=== PATIENT | male | born 1965 | race African-American/Black ===

== ENCOUNTER 2020-12-02 06:20 | Emergency (ER) | payer MEDICAID ==
[~2020-12-02] VITALS: Ht 185.4 cm; Wt 113.2 kg
[2020-12-02 06:37] VITALS: BP 145/71
[2020-12-02] MEDS ORDERED: predniSONE 20 mg tablet PO ONE (07:15)
== END 2020-12-02 07:55 | disposition home or self-care (01) ==
LOC: ER 06:21
DX: M25.571 Pain in right ankle and joints of right foot (principal); M10.9 Gout, unspecified; F17.200 Nicotine dependence, unspecified, uncomplicated
CPT/HCPCS: 73610; 99284; J7512

== ENCOUNTER 2020-12-05 15:56 | Emergency (ER) | payer MEDICAID ==
[~2020-12-05] VITALS: Ht 185.4 cm; Wt 111.4 kg
[2020-12-05 16:20] VITALS: BP 136/74
[2020-12-05] MEDS ORDERED: IBUP-1984 PO (17:40)
[2020-12-05] MEDS ORDERED: ketorolac tromethamine 15mg/ml inj. IM ONE (17:40)
== END 2020-12-05 18:26 | disposition home or self-care (01) ==
LOC: ER 15:57
DX: M10.9 Gout, unspecified (principal); M79.671 Pain in right foot; Z79.899 Other long term (current) drug therapy
CPT/HCPCS: 96372; 99284; J1885

== ENCOUNTER 2025-07-21 09:38 | Inpatient (IN) | payer MEDICAID ==
[~2025-07-21] VITALS: Ht 185.4 cm; Wt 110.6 kg
--- NOTE | 2025-07-21 09:50 | ELECTROCARDIOGRAPH REPORT ---
[facility] Test Date: 2025-07-21 Test Time: 09:44:36 Pat Name: LUCY RAMIREZ Department: EMERGENCY ROOM Room: Gender: M [place] [employer] Supervisor: KH : 1965 Requested By: NORMA NAVA Order Number: [id number] Reading MD: Measurements Intervals [place] Rate: 108 P: 0 AL: 0 QRS: -58 QRSD: 92 T: 71 QT: 334 QTc: 448 Interpretive Statements Atrial fibrillation Ventricular premature complex Left anterior fascicular block Abnormal R-wave progression, late transition Please click the below link to view image of tracing.
[2025-07-21 10:13] LABS: MEAN PLATELET VOLUME 8.5 FL (7.4-10.4); RED CELL DISTRIBUTION WIDTH 18.5 % (11.5-14.5)
--- NOTE | 2025-07-21 10:27 | RADIOLOGY REPORT ---
DI CHEST,SINGLE VIEW, HISTORY: 59 old Male CP COMPARISON: None. None TECHNICAL DATA: 1 view of the chest was obtained. FINDINGS: Lines and tubes: A left chest port is seen. Cardiomediastinal silhouette: normal Pulmonary vasculature: normal Lung expansion: normal Lung airspace: normal Lung interstitium: normal Pleura: normal Pneumothorax: no Bones: Unremarkable Other: no IMPRESSION: No acute intrathoracic abnormality.
[2025-07-21 10:31] LABS: CREATININE 1.03 MG/DL (0.60-1.10); TOTAL CARBON DIOXIDE 28.0 MMOL/L (24-32); eCRCL 85 ML/MIN; eGFR 89 ML/MIN
[2025-07-21 10:34] LABS: LARGE PLATELETS FEW; LYMPHOCYTES % (MANUAL) 12.0 % (21-51); MONOCYTES % (MANUAL) 24.0 % (2-12); NEUTROPHILS % (MANUAL) 64.0 % (42-75); PLATELET ESTIMATE NORMAL
[2025-07-21 10:36] LABS: PRO BRAIN NATRIURETIC PEPTIDE 350 PG/ML (0-125)
--- NOTE | 2025-07-21 11:16 | Physician Documentation ---
History of Present Illness General Chief Complaint: Abdominal Pain Stated Complaint: ABD PAIN Time Seen by MD: 10:17 Primary Medical Doctor: NO PMD Mode of Arrival: EMS History of Present Illness Initial Comments The patient is a 59-year-old male who had colon cancer diagnosed on 04/17/2024 when he presented with hematochezia. He has metastases to the liver. He has undergone nine sessions of chemotherapy under Dr. Ya in [place]. He has an appointment to see him next Saturday. For the past three or four days he has had a fever, up to 102. When he phoned his physician's office they recommended he go to the emergency department. He is also complaining of abdominal pain. He gets shock-like pains at the site of his liver biopsy but, in addition, he has had some central abdominal pain, epigastric for about two weeks. He has a history of hypertension and PE. He is on Eliquis. He denies nausea, vomiting, burning pain. Medication Reconciliation Allergies: Coded Allergies: No Known Allergies (Unverified , 07/21/25) Past Medical History Past Medical History: Gout Past Surgical History: noncontributory Lives In: Home Review of Systems ROS Ten system review is negative except as noted in the HPI. Physical Exam Physical Exam Vital Signs: Temperature: 99.5, Source: Oral, Heart Rate: 99, Respiratory Rate: 14, BP: 126/74, Pulse Oximetry: 98, Weight: 110.600 Oxygen Flow Rate: 0 Physical Exam Physical Exam Vitals and nursing note reviewed. Constitutional: General: Patient is awake, alert, oriented x 4 in no acute distress and well appearing. Speech is clear and lucid. Appearance: Normal appearance. Patient is not ill-appearing, toxic-appearing or diaphoretic. HENT: Head: Normocephalic and atraumatic. Mouth/Throat: Mouth: Mucous membranes are moist. Pharynx: Oropharynx is clear. Eyes: General: No scleral icterus. Extraocular Movements: Extraocular movements intact. Pupils: Pupils are equal, round, and reactive to light. Neck: Supple, no Kernig or Brudzinski sign. Cardiovascular: Rate and Rhythm: Normal rate and regular rhythm. Heart sounds: No murmur heard. Pulmonary: Effort: No respiratory distress. Breath sounds: No wheezing, rhonchi or rales. Abdominal: General: There is no distension. Palpations: There is no fluid wave, hepatomegaly or mass. Tenderness: There is no abdominal tenderness. There is no guarding. Musculoskeletal: General: No swelling or deformity. Skin: Coloration: Skin is not jaundiced. Findings: No erythema or rash. Neurological: Mental Status: Patient is alert. Progress Results/Orders Results/Orders Orders - NORMA NAVA MD Chest,Single View (07/21/25 09:47) Monitor (07/21/25 09:47) Saline Lock (07/21/25 09:47) Oxygen (07/21/25 09:47) Straight Cath For Urine Sample (07/21/25 09:47) Ct Abdomen Pelvis (07/21/25 11:08) Cult Urine + [place] [facility] (07/21/25 11:57) Page Hospitalist (07/21/25 13:36) Completed Orders - NORMA NAVA MD Cbc/Diff (07/21/25 09:47) BMP (07/21/25 09:47) Lipase (07/21/25 09:47) CMP (07/21/25 09:47) Chest,Single View (07/21/25 09:47) PBNP (07/21/25 09:47) Electrocardiogram (07/21/25 09:47) Hs Troponin I W Calculations (07/21/25 09:47) Man Diff (07/21/25 10:02) C-Reactive Protein (07/21/25 10:02) Ua W/Microscopic, Cult If Ind (07/21/25 11:30) LA (07/21/25 12:48) Ceftriaxone 2gm/D5w 50ml Bag (Rocephin 2 (07/21/25 12:50) MG (07/21/25 10:02) Iohexol 300mg/Ml 100ml Inj. (Omnipaque-3 (07/21/25 13:06) Vital Signs 07/21/25 07/21/25 07/21/25 09:41 10:10 12:12 Temp 99.5 Pulse 99 81 Resp 18 14 20 B/P (MAP) 126/74 138/87 (104) Pulse Ox 98 98 O2 Flow Rate 0 0 Laboratory Tests Test 07/21/25 10:02 07/21/25 11:30 07/21/25 12:52 White Blood Count 7.2 Red Blood Count 4.27 L Hemoglobin 12.4 L Hematocrit 37.2 L Mean Corpuscular Volume 87.2 Mean Corpuscular Hemoglobin 29.0 Mean Corpuscular Hemoglobin Concent 33.2 Red Cell Distribution Width 18.5 H Platelet Count 190 Mean Platelet Volume 8.5 Neutrophils (%) (Auto) 63.2 Lymphocytes (%) (Auto) 13.5 L Monocytes (%) (Auto) 22.1 H Eosinophils (%) (Auto) 0.4 Basophils (%) (Auto) 0.8 Neutrophils # (Auto) 4.5 Lymphocytes # (Auto) 1.0 L Monocytes # (Auto) 1.6 H Eosinophils # (Auto) 0.0 Basophils # (Auto) 0.1 CBC Comment Differential Total Cells Counted 100 Neutrophils % (Manual) 64.0 Lymphocytes % (Manual) 12.0 L Monocytes % (Manual) 24.0 H Platelet Estimate Normal Large Platelets Few Red Blood Cell Morphology Perf Basophilic Stippling Anisocytosis 2+ Sodium Level 136 Potassium Level 4.1 Chloride Level 100 Carbon Dioxide Level 28.0 Anion Gap 8 Blood Urea Nitrogen 15 Creatinine 1.03 Estimated GFR/1.73 m2 89 BUN/Creatinine Ratio 14.6 Glucose Level 118 H Calcium Level 9.1 Magnesium Level 2.2 Total Bilirubin 1.2 H Aspartate Amino Transf (AST/SGOT) 35 Alanine Aminotransferase (ALT/SGPT) 19 Alkaline Phosphatase 113 Troponin I High Sensitivity 15 C-Reactive Protein 18.33 H Pro-B-Type Natriuretic Peptide 350 H Total Protein 8.7 H Albumin 2.5 L Globulin 6.2 H Albumin/Globulin Ratio 0.4 L Lipase 22 Chemistry Comments Urine Specimen Description Urinal Urine Color Yellow Urine Clarity Slightly cloudy Urine pH 6.0 Urine Specific [place] 1.010 Urine Protein Negative Urine Glucose (UA) Negative Urine Ketones Negative Urine Occult Blood Trace-intact Urine Nitrite Negative Urine Bilirubin Negative Urine Urobilinogen 0.2 Urine Leukocyte Esterase Negative Urine RBC 3-10 Urine WBC 5-10 H Urine WBC Clumps Few Urine Squamous Epithelial Cells Moderate Urine Transitional Epithelial Cells Moderate Urine Bacteria Few Urine Mucus Few Urine Culture Indicated Indicated Volume Urine Centrifuged 10 ml Urine Comment Lactic Acid Level 1.3 Microbiology Date/Time Source Procedure Growth Status 07/21/25 11:57 Urine Urinal (Er Only) Urine Culture - Preliminary Culture received. Resulted Medical Decision Making Findings This 59-year-old man with a history of colon cancer with metastases to the liver who has been on nine rounds of chemotherapy presents with several days of fever at home, up to 102, generalized weakness and dysuria. His urinalysis shows pyuria and although his documented vital signs do not reflect sepsis he has tachycardia on the monitor up to 120. I believe he is septic. I am going to get him admitted after starting antibiotics. Departure Disposition: ADMITTED INPATIENT Admitted to Inpatient Unit: to hospitalist Admission Level of Care: Med/Surg Impression: Primary Impression: Acute urinary tract infection Condition: Stable Referrals: NO PRIMARY CARE PROVIDER (PCP) Signature Scribe Signature: . Attestation: . NORMA NAVA MD Jul 21, 2025 11:16
[2025-07-21 11:38] LABS: LEUKOCYTE ESTERASE ,URINE NEGATIVE (Neg); NITRITES, URINE NEGATIVE (Neg); OCCULT BLOOD,URINE TRACE-INTACT (Neg)
[2025-07-21 11:53] LABS: UA COLLECTION TYPE URINAL
[2025-07-21 11:54] LABS: MUCUS STRANDS FEW /LPF (Neg); SQUAMOUS EPITHELIAL CELL,UR MODERATE /LPF (FEW); WBC CLUMPS,URINE FEW /HPF (NEGATIVE)
[2025-07-21] MEDS ORDERED: iohexol 300mg/ml 100ml inj. ONE (13:06)
[2025-07-21] MEDS ORDERED: potassium Cl 20 mEq SR tablet PO PRN ×2 (13:50)
[2025-07-21] MEDS ORDERED: ondansetron 4mg rapidly disintigrating tab PO PRN (13:50)
[2025-07-21] MEDS ORDERED: mag hydrox/Alum hydrox/simeth 30ml oral suspension PO PRN (13:50)
[2025-07-21] MEDS ORDERED: magnesium sulf-water 2g/50mL 50 ML IV PRN (13:50)
[2025-07-21] MEDS ORDERED: potassium Cl 40MEQ/1/2NS 520ml 520 ML IV PRN (13:50)
[2025-07-21] MEDS ORDERED: magnesium sulf-water 4G/100mL 100 ML IV PRN (13:50)
[2025-07-21] MEDS: normal saline 1000ml 1,000 ML IV SCH (14:04)
[2025-07-21] MEDS: pantoprazole 40mg Tablet.DR PO ONE (14:04)
[2025-07-21] MEDS: CefTRIAXone 2gm/D5W 50ml BAG 50 ML IV ONE (14:04)
--- NOTE | 2025-07-21 14:13 | HISTORY AND PHYSICAL ---
History & Physical Providers to CC ~ History of Present Illness Reason for Admit\Complaint: UTI, abdominal pain History of Present Illness Roc Al is a 59-year-old male with a past medical history of hypertension, pulmonary embolism, colon cancer with metastasis to liver currently on chemotherapy, TIA who presented to the ED with chief complaint of fever x 3 days and abdominal pain unrelated to food intake x 2 weeks. Patient has had nine rounds of chemo. Patient denies chest pain, palpitations, shortness of breath, n/v/d, dysuria, melena, hematochezia, hematemesis. Initial diagnostic findings are notable for fever and elevated procal. Patient is to be admitted for further workups and treatment. Allergies: Coded Allergies: No Known Allergies (Unverified , 07/21/25) Home Medications Home Medications Active Past Medical History Past Medical History Colon cancer with metastasis to liver Hypertension Pulmonary embolism TIA Gout Past Surgical History Surgical History Comment Denies Past Social History Social History Comment Alcohol: Denies Tobacco: Denies, never Illicit drug use: Denies Living situation: Lives at home with spouse ROS ROS Other than positives in HPI, all 14 review of systems are negative Exam Vitals: Vital Signs Date Time Temp Pulse Resp B/P (MAP) Pulse Ox O2 Delivery O2 Flow Rate FiO2 07/21/25 12:12 81 20 138/87 (104) 98 0 07/21/25 09:41 99.5 General: A&Ox 3, NAD HEENT: Normocephalic, PERRLA Neck: Supple, trachea midline, no JVD Chest: Clear to auscultation bilaterally Cardiovascular: RRR, S1&S2 Abdomen: Pain with palpation in all 4 quadrants; negative rebound tenderness Extremities: No cyanosis/clubbing/or edema Central Nervous System: CN II-XII intact, no focal deficits Musculoskeletal: No paraspinal muscle tenderness, no muscle spasm Skin: Warm and intact Diagnostic Data Last Recorded Lab Results: 07/21/25 1002 07/21/25 1002 Additional Plan Roc Al is a 59-year-old male with a past medical history of hypertension, pulmonary embolism, colon cancer with metastasis to liver currently on chemotherapy, TIA who presented to the ED with chief complaint of fever x 3 days and abdominal pain unrelated to food intake x 2 weeks. Assessment & Plan UTI Colon cancer, on chemotherapy Liver metastasis Immunocompromised status -CT refused by pt; UA positive UTI, procal 1.22 -start IVF, Rocephin/Flagyl, follow blood/urine cx, US abdomen Pulmonary embolism, 8 months ago Hypertension TIA Gout -pending med rec VTE/VTE prophylaxis: Heparin Code Status: Full Code I spent a total of 35 minutes discussing Advanced Care Planning measures with the patient. Advance care planning: Discussed with patient the importance of advance care planning in case of emergent situation. We discussed various resuscitative measures/ ACP with the patient at the time of admission. Patient voiced understanding and patient has decided on a full code status. Date of Service: Jul 21, 2025 Billing Provider: KERRY GARCIA Common Visit Codes: [id number] INP/OBS CARE (HIGH) Secondary Visit Codes: [id number] CARE PLAN 30 MINUTES KERRY GARCIA Jul 21, 2025 14:13
[2025-07-21] MEDS ORDERED: hydrALAZINE 20mg/ml inj. IV PRN (14:15)
[2025-07-21] MEDS: normal saline 1000ml 1,000 ML IV ONE (14:20)
[2025-07-21] MEDS ORDERED: AMLO2.5T2 PO (16:18)
[2025-07-21] MEDS ORDERED: APIX5TAB3 PO (16:18)
[2025-07-21] MEDS: metroNIDAZOLE-Flagyl 500mg/NS 100 ML IV SCH (16:59)
[2025-07-21 18:34] VITALS: RESP 18; O2SAT 99
[2025-07-21 18:39] VITALS: BP 138/86; PULSE 90; RESP 18; TEMP 98.6; O2SAT 99
--- NOTE | 2025-07-21 18:49 | RADIOLOGY REPORT ---
CLINICAL HISTORY: abdominal pain, fever, sepsis, immunocompromised colon cancer with Mets to the live r. TECHNIQUE: Complete ultrasound exam of the abdomen was performed. COMPARISON: None FINDINGS: The liver is heterogeneous in echogenicity with numerous heterogeneous lesions, the largest measuring 9 cm. The liver measures 15.2 similar length. The common duct is 4 mm. Gallbladder is contracted without shadowing stone or tenderness. The pancreas is not well seen. The right kidney is 9.6 cm and the left kidney is 9.8 cm. No hydronephrosis, increased echogenicity, shadowing stone, or focal lesion. Spleen is within normal limits. The aorta and IVC are not seen. IMPRESSION: Numerous liver lesions measuring up to 9 cm, most compatible with provided history of metastatic colo n cancer to the liver.
[2025-07-21 20:00] VITALS: RESP 16; O2SAT 99
[2025-07-21] MEDS: docusate sod 100mg capsule PO SCH (20:00)
[2025-07-21] MEDS: K and/or MAG REPLACEMENT MC SCH (20:00)
[2025-07-21 22:00] VITALS: BP 143/82; PULSE 61; RESP 18; TEMP 99.4; O2SAT 98
[2025-07-21] MEDS: heparin, porcine 5000 units/ml vial SQ SCH (22:09)
[2025-07-22 04:51] LABS: MEAN PLATELET VOLUME 8.4 FL (7.4-10.4); RED CELL DISTRIBUTION WIDTH 18.1 % (11.5-14.5)
[2025-07-22 05:17] LABS: CREATININE 1.20 MG/DL (0.60-1.10); TOTAL CARBON DIOXIDE 27.0 MMOL/L (24-32); eCRCL 73 ML/MIN; eGFR 74 ML/MIN
[2025-07-22] MEDS: HYDROcodone/acetaminophen 5mg/325mg tablet PO PRN (05:54)
[2025-07-22 06:00] VITALS: BP 132/65; PULSE 91; RESP 18; TEMP 100.5; O2SAT 95
[2025-07-22 06:17] LABS: BANDS% (MANUAL) 1.0 % (0-10); LARGE PLATELETS FEW; LYMPHOCYTES % (MANUAL) 11.0 % (21-51); MONOCYTES % (MANUAL) 25.0 % (2-12); NEUTROPHILS % (MANUAL) 63.0 % (42-75); PLATELET ESTIMATE NORMAL
[2025-07-22] MEDS: pantoprazole 40mg Tablet.DR PO SCH (07:23)
[2025-07-22] MEDS: CefTRIAXone 2gm/D5W 50ml BAG 50 ML IV SCH (07:23)
[2025-07-22] MEDS: normal saline 1000ml 1,000 ML IV ONE (09:16)
[2025-07-22 10:00] VITALS: BP 116/68; PULSE 85; RESP 18; TEMP 98; O2SAT 100
[2025-07-22] MEDS: diazepam inj 5 MG/ML inj. IV ONE (11:46)
[2025-07-22] MEDS: ondansetron/PF 4mg/2ml inj IV PRN (11:46)
[2025-07-22] MEDS ORDERED: iohexol 300mg/ml 100ml inj. ONE (11:59)
--- NOTE | 2025-07-22 13:46 | RADIOLOGY REPORT ---
CLINICAL INFORMATION: Sepsis. Abdominal pain. TECHNIQUE: Axial CT images of the abdomen and pelvis were obtained without IV contrast. Coronal and s agittal reformatted images were obtained, reviewed, and stored. Evaluation of the parenchymal organs is limited without IV contrast. Evaluation of the bowel and mesentery is limited without oral contras t. All CT scans at this medical facility are performed using dose modulation techniques as appropriat e to a performed exam including the following: Automated exposure control was utilized; adjustment of the MA and/or KV according to patient size; and use of iterative reconstruction technique. CTDIvol = 32.09 mGy DLP = 1555.67 mGy-cm COMPARISON: None FINDINGS: Lung bases: Mild atelectasis in the lung bases. Liver: There are multiple liver masses, with the largest in the central aspect of the liver involving portions of the right and left hepatic lobes extending up to 7.9 cm in AP dimension, 7.9 cm in trans verse dimension, and up to 12 cm in craniocaudal dimension. Malignancy not excluded. There appears to be some capsular retraction associated with the mass at its anterior aspect. There are additional sm aller solid-appearing masses throughout the liver. There also multiple cysts in the liver. Nodular c ontour of the liver with relative enlargement of the left hepatic lobe, may be seen with cirrhosis in the appropriate clinical setting. Biliary: No calcified gallstones visualized. There is fluid in the gallbladder fossa as well as marion cent perihepatic fluid. Spleen: Unremarkable. Pancreas: Grossly unremarkable in its noncontrast enhanced appearance. Adrenal glands: Unremarkable. No mass. Kidneys: No hydronephrosis. No renal or ureteral calculi. Aorta/Vascular: Moderate atherosclerotic calcification. No abdominal aortic aneurysm. Retroperitoneum: Prominent para-aortic and interaortocaval lymph nodes measuring up to 1.7 x 0.9 cm. Bowel/mesentery: Nonspecific nondilated fluid-filled small bowel loops. No small bowel obstruction. A ppendix is visualized and appears grossly unremarkable. There is somewhat irregular wall thickening s een in the cecum near the ileocecal junction. Malignancy not excluded. Pelvic organs: Grossly unremarkable. Bladder: Moderately distended bladder. Abdominal wall: No mass or hernia. Bones: No acute fracture or suspicious intraosseous lesion. IMPRESSION: 1. Multiple solid-appearing liver lesions are seen, suspicious for malignancy, including metastatic d isease, although other etiologies, including multiple hemangiomas could also be included in the diffe rential. There are also multiple cysts in the liver. Subtle nodular contour of the liver with relati ve enlargement of the left hepatic lobe, may be seen with cirrhosis in the appropriate clinical setti ng. MRI liver mass protocol recommended. 2. There is a small amount of free fluid adjacent to the liver, including at the gallbladder fossa. N o calcified gallstones are seen. 3. Irregular wall thickening of the cecum near the ileocecal junction. Can not exclude malignancy. 4. Prominent para-aortic and interaortocaval lymph nodes are indeterminate based on size and morpholo gy. Senait metastatic disease not excluded. 5. Additional findings as described above.
--- NOTE | 2025-07-22 16:01 | PROGRESS NOTE ---
Daily Progress Note Providers to CC ~ Antibiotic Timeout Antibiotic Ordered?: Yes Subjective No acute events overnight. Patient examined at bedside. No new complaints, not in acute distress. Patient denies chest pain, sob, palpitations, n/v/d. CT abdomen/pelvis consistent with colon cancer with metastasis consistent with history. No hydronephrosis. Preliminary blood/urine culture negative. Objective Vital Signs Date Time Temp Pulse Resp B/P (MAP) Pulse Ox O2 Delivery O2 Flow Rate FiO2 07/22/25 08:00 Room Air 0.0 07/22/25 06:00 100.5 91 18 132/65 (87) 95 Result Diagram: 07/22/2542207/22/25422 Physical Exam General: A&Ox 3, NAD HEENT: Normocephalic, PERRLA Neck: Supple, trachea midline, no JVD Chest: Clear to auscultation bilaterally Cardiovascular: RRR, S1&S2 Abdomen: Pain with palpation in all 4 quadrants, more tenderness in medial upper abdomen; negative rebound tenderness Extremities: No cyanosis/clubbing/or edema Central Nervous System: CN II-XII intact, no focal deficits Musculoskeletal: No paraspinal muscle tenderness, no muscle spasm Skin: Warm and intact Problem\Assessment\Plan Roc Al is a 59-year-old male with a past medical history of hypertension, pulmonary embolism, colon cancer with metastasis to liver currently on chemotherapy, TIA who presented to the ED with chief complaint of fever x 3 days and abdominal pain unrelated to food intake x 2 weeks. Assessment & Plan UTI Colon cancer, on chemotherapy Liver metastasis Immunocompromised status -CT refused by pt; UA positive UTI, procal 1.22 -start IVF, Rocephin/Flagyl, follow blood/urine cx, US abdomen -07/22: CT abdomen/pelvis consistent with colon cancer with metastasis consistent with history. No hydronephrosis. Preliminary urine cx negative. Pulmonary embolism, 8 months ago Hypertension TIA Gout -pending med rec VTE/VTE prophylaxis: Heparin Code Status: Full Code Date of Service: Jul 22, 2025 Billing Provider: KERRY GARCIA Common Visit Codes: [id number] INP/OBS CARE(HIGH) KERRY GARCIA Jul 22, 2025 16:01
[2025-07-22] MEDS: LidoCAINE 2% Topical Jelly 11mL syringe (UROJET) TOP ONE (16:43)
[2025-07-22 18:00] VITALS: BP 145/76; PULSE 89; RESP 18; TEMP 98.8; O2SAT 94
[2025-07-22 20:00] VITALS: RESP 15; O2SAT 96
[2025-07-22 22:00] VITALS: BP 145/76; PULSE 89; RESP 18; TEMP 98.8; O2SAT 94
[2025-07-23 04:46] LABS: MEAN PLATELET VOLUME 8.2 FL (7.4-10.4); RED CELL DISTRIBUTION WIDTH 18.1 % (11.5-14.5)
[2025-07-23 04:57] LABS: CREATININE 1.31 MG/DL (0.60-1.10); TOTAL CARBON DIOXIDE 25.4 MMOL/L (24-32); eCRCL 67 ML/MIN; eGFR 67 ML/MIN
[2025-07-23 06:36] VITALS: BP 132/64; PULSE 95; RESP 20; TEMP 97.3; O2SAT 96
[2025-07-23 07:30] LABS: LYMPHOCYTES % (MANUAL) 22.0 % (21-51); MONOCYTES % (MANUAL) 24.0 % (2-12); NEUTROPHILS % (MANUAL) 54.0 % (42-75)
[2025-07-23 07:31] LABS: PLATELET ESTIMATE NORMAL
[2025-07-23 08:30] VITALS: RESP 17; O2SAT 95
--- NOTE | 2025-07-23 13:00 | PROGRESS NOTE ---
Daily Progress Note Providers to CC ~ Antibiotic Timeout Antibiotic Ordered?: Yes Subjective No acute events overnight. Patient examined at bedside. No new complaints, not in acute distress. Patient denies chest pain, sob, palpitations, n/v/d. Patient reports resolving abdominal pain. CT abdomen/pelvis consistent with colon cancer with metastasis consistent with history. No hydronephrosis. Preliminary blood/urine culture negative. Objective Vital Signs Date Time Temp Pulse Resp B/P (MAP) Pulse Ox O2 Delivery O2 Flow Rate FiO2 07/23/25 11:24 12 07/23/25 08:30 95 Room Air 0.0 07/23/25 06:36 97.3 95 132/64 (86) Result Diagram: 07/23/2540607/23/25406 Physical Exam General: A&Ox 3, NAD HEENT: Normocephalic, PERRLA Neck: Supple, trachea midline, no JVD Chest: Clear to auscultation bilaterally Cardiovascular: RRR, S1&S2 Abdomen: Pain with palpation in all 4 quadrants, more tenderness in medial upper abdomen; negative rebound tenderness Extremities: No cyanosis/clubbing/or edema Central Nervous System: CN II-XII intact, no focal deficits Musculoskeletal: No paraspinal muscle tenderness, no muscle spasm Skin: Warm and intact Problem\Assessment\Plan Roc Al is a 59-year-old male with a past medical history of hypertension, pulmonary embolism, colon cancer with metastasis to liver currently on chemotherapy, TIA who presented to the ED with chief complaint of fever x 3 days and abdominal pain unrelated to food intake x 2 weeks. Assessment & Plan UTI Colon cancer, on chemotherapy Liver metastasis Immunocompromised status -CT refused by pt; UA positive UTI, procal 1.22 -start IVF, Rocephin/Flagyl, follow blood/urine cx, US abdomen -07/22: CT abdomen/pelvis consistent with colon cancer with metastasis consistent with history. No hydronephrosis. Preliminary urine cx negative. -07/23: improving abdominal pain, preliminary blood cx negative; started vancomycin as a add-on therapy Pulmonary embolism, 8 months ago Hypertension TIA Gout -pending med rec VTE/VTE prophylaxis: Heparin Code Status: Full Code Date of Service: Jul 23, 2025 Billing Provider: KERRY GARCIA Common Visit Codes: [id number] INP/OBS CARE(HIGH) KERRY GARCIA Jul 23, 2025 13:00
[2025-07-23] MEDS: VANCOMYCIN 1.75GM/WATER FOR INJ (PEG) 350 ML IVPB IV ONE (15:28)
[2025-07-23 18:00] VITALS: BP 152/84; PULSE 94; RESP 16; TEMP 98.1; O2SAT 99
[2025-07-23 22:00] VITALS: BP 135/68; PULSE 97; RESP 20; TEMP 99.8; O2SAT 95
[2025-07-24] VITALS (7 sets, daily range): BP systolic 138–155; BP diastolic 78–91; PULSE 78–118; RESP 16–40; TEMP 98.2–98.9; O2SAT 93–97
[2025-07-24] MEDS: vancomycin/NS 1 GM ADD-VANTAGE 250 ML IV SCH (02:21)
[2025-07-24] MEDS: HYDROcodone/acetaminophen 10/325mg tab PO PRN (05:39)
[2025-07-24 06:38] LABS: MEAN PLATELET VOLUME 8.4 FL (7.4-10.4); RED CELL DISTRIBUTION WIDTH 18.1 % (11.5-14.5)
--- NOTE | 2025-07-24 06:44 | ELECTROCARDIOGRAPH REPORT ---
[facility] Test Date: 2025-07-24 Test Time: 05:06:26 Pat Name: LUCY RAMIREZ Department: Room: [place] [address] [address] Gender: M Nursing Home Physician: : [id number] Requested By: KERRY GARCIA Order Number: [id number] Reading MD: Dr. DAVONTE Julien Measurements Intervals [place] Rate: 88 P: 0 OK: 0 QRS: -51 QRSD: 76 T: 20 QT: 342 QTc: 413 Interpretive Statements Atrial flutter Left anterior fascicular block Inferior infarct , age undetermined Electronically Signed On 07-24-2025 16:26:[address] DAVONTE Julien Please click the below link to view image of tracing.
[2025-07-24 06:50] LABS: CREATININE 1.18 MG/DL (0.60-1.10); TOTAL CARBON DIOXIDE 29.0 MMOL/L (24-32); eCRCL 74 ML/MIN; eGFR 76 ML/MIN
[2025-07-24] MEDS: normal saline 1000ml 1,000 ML IV ONE ×2 (09:35→10:45)
[2025-07-24] MEDS: PERFLUTREN PROTEIN-A MICROSPHR (Optison) 0.22 MG/ML 3ML VIAL IV ONE (12:55)
--- NOTE | 2025-07-24 13:22 | PROGRESS NOTE ---
Daily Progress Note Providers to CC ~ Antibiotic Timeout Antibiotic Ordered?: Yes Subjective Patient examined at bedside. No new complaints, not in acute distress. EKG overnight shows afib at 108 rate spontaneously controlled. Started bbx and Eliquis. Patient denies chest pain, sob, palpitations, n/v/d. Patient reports resolving abdominal pain. CT abdomen/pelvis consistent with colon cancer with metastasis consistent with history. No hydronephrosis. Preliminary blood/urine culture negative. Low-grade fever, on vancomycin, Rocephin, Flagyl. Objective Vital Signs Date Time Temp Pulse Resp B/P (MAP) Pulse Ox O2 Delivery O2 Flow Rate FiO2 07/24/25 10:30 98.9 83 24 143/82 (102) 97 Room Air 07/24/25 08:00 0.0 Result Diagram: 07/24/25 0547 07/24/25 05 Physical Exam General: A&Ox 3, NAD HEENT: Normocephalic, PERRLA Neck: Supple, trachea midline, no JVD Chest: Clear to auscultation bilaterally Cardiovascular: RRR Abdomen: Pain with palpation in all 4 quadrants, more tenderness in medial upper abdomen; negative rebound tenderness Extremities: No cyanosis/clubbing/or edema Central Nervous System: CN II-XII intact, no focal deficits Musculoskeletal: No paraspinal muscle tenderness, no muscle spasm Skin: Warm and intact Problem\Assessment\Plan Roc Al is a 59-year-old male with a past medical history of hypertension, pulmonary embolism, colon cancer with metastasis to liver currently on chemotherapy, TIA who presented to the ED with chief complaint of fever x 3 days and abdominal pain unrelated to food intake x 2 weeks. Assessment & Plan UTI Colon cancer, on chemotherapy Liver metastasis Immunocompromised status Prerenal ROSS 2/2 dehydration/vasomotor nephropathy- not POA Atrial fibrillation w/ RVR- not POA -CT refused by pt; UA positive UTI, procal . -start IVF, Rocephin/Flagyl, follow blood/urine cx, US abdomen -07/22: CT abdomen/pelvis consistent with colon cancer with metastasis consistent with history. No hydronephrosis. Preliminary urine cx negative. -07/23: improving abdominal pain, preliminary blood cx negative; started vancomycin as an add-on therapy -07/24: Low-grade fever, continue abx; EKG overnight shows afib at 108 rate spontaneously controlled, serum lytes wnl, no hypoxia/hypotension but low-grade fever; start bbx, Eliquis, follow TTE, TSH/T4 Pulmonary embolism, 8 months ago Hypertension TIA Gout VTE/VTE prophylaxis: Heparin Code Status: Full Code Date of Service: Jul 24, 2025 Billing Provider: KERRY GARCIA Common Visit Codes: [id number] INP/OBS CARE(HIGH) KERRY GARCIA Jul 24, 2025 13:22
[2025-07-24] MEDS: carvedilol 6.25mg tablet PO ONE (15:06)
[2025-07-24] MEDS: carvedilol 6.25mg tablet PO SCH (20:00)
[2025-07-24] MEDS ORDERED: metoprolol tartrate 12.5mg (1/2 tablet) PO SCH (20:00)
[2025-07-25] VITALS (9 sets, daily range): BP systolic 137–162; BP diastolic 61–82; PULSE 66–90; RESP 16–26; TEMP 98.3–100.9; O2SAT 92–96
[2025-07-25] MEDS: VANCOMYCIN LEVEL IV ONE (01:30)
[2025-07-25 01:42] LABS: MEAN PLATELET VOLUME 7.9 FL (7.4-10.4); RED CELL DISTRIBUTION WIDTH 18.0 % (11.5-14.5)
[2025-07-25 01:46] LABS: CREATININE 1.08 MG/DL (0.60-1.10); TOTAL CARBON DIOXIDE 25.3 MMOL/L (24-32); eCRCL 81 ML/MIN; eGFR 84 ML/MIN
[2025-07-25] MEDS: magnesium hydroxide 30ml (MOM) UD suspension PO PRN (02:02)
--- NOTE | 2025-07-25 11:23 | PROGRESS NOTE ---
Daily Progress Note Providers to CC ~ Antibiotic Timeout Antibiotic Ordered?: Yes Subjective Patient examined at bedside. No new complaints, not in acute distress. EKG overnight shows afib at 108 rate spontaneously controlled. PAF, repeat EKG sinus with controlled rate. Patient denies chest pain, sob, palpitations, n/v/d. Patient reports resolving abdominal pain. CT abdomen/pelvis consistent with colon cancer with metastasis consistent with history. No hydronephrosis. Preliminary blood/urine culture negative. An episode of low-grade fever at 99.5F which resolved, continued on vancomycin, Rocephin, Flagyl. Objective Vital Signs Date Time Temp Pulse Resp B/P (MAP) Pulse Ox O2 Delivery O2 Flow Rate FiO2 07/25/25 07:16 98.3 71 16 140/62 (88) 93 07/25/25 06:31 Room Air 07/25/25 02:00 2.0 Result Diagram: 07/25/2511607/25/25 011 Physical Exam General: A&Ox 3, NAD HEENT: Normocephalic, PERRLA Neck: Supple, trachea midline, no JVD Chest: Clear to auscultation bilaterally Cardiovascular: RRR Abdomen: Pain with palpation in all 4 quadrants, more tenderness in medial upper abdomen; negative rebound tenderness Extremities: No cyanosis/clubbing/or edema Central Nervous System: CN II-XII intact, no focal deficits Musculoskeletal: No paraspinal muscle tenderness, no muscle spasm Skin: Warm and intact Problem\Assessment\Plan Roc Al is a 59-year-old male with a past medical history of hypertension, pulmonary embolism, colon cancer with metastasis to liver currently on chemotherapy, TIA who presented to the ED with chief complaint of fever x 3 days and abdominal pain unrelated to food intake x 2 weeks. Assessment & Plan UTI Colon cancer, on chemotherapy Liver metastasis Immunocompromised status Prerenal ROSS 2/2 dehydration/vasomotor nephropathy- not POA Atrial fibrillation w/ RVR- not POA -CT refused by pt; UA positive UTI, procal . -start IVF, Rocephin/Flagyl, follow blood/urine cx, US abdomen -07/22: CT abdomen/pelvis consistent with colon cancer with metastasis consistent with history. No hydronephrosis. Preliminary urine cx negative. -07/23: improving abdominal pain, preliminary blood cx negative; started vancomycin as an add-on therapy -07/24: Low-grade fever, continue abx; EKG overnight shows afib at 108 rate spontaneously controlled, serum lytes wnl, no hypoxia/hypotension but low-grade fever; start bbx, Eliquis, follow TTE, TSH/T4 -07/25: PAF, repeat EKG sinus with controlled rate Pulmonary embolism, 8 months ago Hypertension TIA Gout VTE/VTE prophylaxis: Heparin Code Status: Full Code Date of Service: Jul 25, 2025 Billing Provider: KERRY GARCIA Common Visit Codes: [id number] INP/OBS CARE(HIGH) KERRY GARCIA Jul 25, 2025 11:23
[2025-07-25] MEDS: VANCOmycin 1250MG/NS 250ml Bag 250 ML IV SCH (15:26)
--- NOTE | 2025-07-25 17:46 | CARDIOLOGY REPORT ---
APPROVED REPORT EXAM: Comprehensive 2D, Doppler, and color-flow Echocardiogram. Patient Location: 345 [address] Blood Pressure: 150/79 mmHg Heart Rate: 74 bpm Rhythm: Sinus Rhythm Indications Arrhythmia Hx of Atrial Fibrillation Atrial Flutter Hypertension Hx of Pulmonary Embolism Colon Cancer TIA Mathematics Lecturer: None Previous echo: None 2D Dimensions RVDd 3.5 cm LA Diam4.7 cm RA Minor4.4 cmLVOT Diameter 2.10 (1.8-2.4cm) IVC 21.99 mmCO 6.1 L/min M-Mode Dimensions IVSd 1.08 (0.7-1.1cm) LVDd 5.35 (4.0-5.6cm) Aortic Root 2.79 (2.2-3.7cm) PWd 1.10 (0.7-1.1cm) Aortic Cusp Exc 1.86 (1.5-2.0cm) IVSs 1.33 cm LVDs 3.70 (2.0-3.8cm) FS (%) 32 % PWs 1.39 cm ESV(Teich) 55.3 ml LVEF(%) 59 (>50%) Aortic Valve AoV Peak Matthew. 176.9 cm/s AoV VTI 31.2 cm AO Peak GR. 12.5 mmHg AO Mean GR. 7 mmHg LVOT VTI 21.79 cm LVOT Peak Matthew. 121.4 cm/s ANOOP(VTI)/BSA 2.42 cm2/m2 ANOOP (VTI) 2.42 cm2 Mitral Valve MV E Velocity 90.4 cm/s MV Peak Gr. 5 mmHg MV DECEL TIME 212 ms MV A Velocity 55.3 cm/s MV PHT 56 ms E/A Ratio 1.6 MVA (PHT) 3.93 cm2 MV NArm710.3 cm/s TDI Lateral E' P. V15.81 cm/s Medial E' P. V 16.38 cm/s E/Lateral E' 5.7 E/Medial E' 5.5 Tricuspid Valve TR P. Velocity 197 cm/s RAP ESTIMATE 15 mmHg TR Peak Gr. 16 mmHg RVSP 31 mmHg Pulmonary Vein S1 Velocity 36.3 cm/s D2 Velocity 26.7 cm/s PVa Kdqhbltu30.0 cm/s PVa [id number] msec LEFT VENTRICLE Normal LV size and wall thickness. Mid and basal inferoseptum appears hypokinetic. Overall systolic f unction is normal. Overall LVEF is about 60% RIGHT VENTRICLE Right ventricle is mildly dilated with mildly reduced function. Estimated PA systolic pressure is 31 mmHg. ATRIA Left atrium appears to be moderately dilated. Right atrium appears mildly dilated. AORTIC VALVE Trileaflet AV appears sclerotic without stenosis. Trace insufficiency. MITRAL VALVE Mild MV annular calcification and thickening without stenosis. Mild regurgitation. TRICUSPID VALVE TV appears structurally normal with trace regurgitation. PULMONIC VALVE Grossly normal PV without stenosis, physiologic insufficiency. GREAT VESSELS The aortic root is normal in size. IVC is dilated and collapses less than 50% with inspiration. PERICARDIUM Normal pericardium. No pericardial effusion seen. Other Information Study Quality: Fair Conclusion Overall LVEF is about 60% Normal LV size and wall thickness. Mid and basal inferoseptum appears hypokinetic. Overall systolic function is normal. Right ventricle is mildly dilated with mildly reduced function. Estimated PA systolic pressure is 31 mmHg. Left atrium appears to be moderately dilated. Right atrium appears mildly dilated. Trileaflet AV appears sclerotic without stenosis. Trace insufficiency. Mild MV annular calcification and thickening without stenosis. Mild regurgitation. TV appears structurally normal with trace regurgitation. Grossly normal PV without stenosis, physiologic insufficiency. Normal pericardium. No pericardial effusion seen.
[2025-07-26] VITALS (9 sets, daily range): BP systolic 108–134; BP diastolic 54–83; PULSE 50–94; RESP 14–35; TEMP 96.8–98.5; O2SAT 93–99
--- NOTE | 2025-07-26 05:38 | ELECTROCARDIOGRAPH REPORT ---
[facility] Test Date: 2025-07-25 Test Time: 08:45:11 Pat Name: LUCY RAMIREZ Department: Room: [place] [address] [address] Gender: M Supervisor [employer]: : 1965 Requested By: KERRY GARCIA Order Number: [id number] Reading MD: Dr. Raven Buck Measurements Intervals [place] Rate: 80 P: 67 NV: 152 QRS: -49 QRSD: 80 T: 16 QT: 358 QTc: 412 Interpretive Statements Normal sinus rhythm Left anterior fascicular block Electronically Signed On 07-26-2025 6:54:[address] Raven Buck Please click the below link to view image of tracing.
[2025-07-26 06:08] LABS: MEAN PLATELET VOLUME 8.1 FL (7.4-10.4); RED CELL DISTRIBUTION WIDTH 18.1 % (11.5-14.5)
[2025-07-26 06:35] LABS: CREATININE 1.36 MG/DL (0.60-1.10); TOTAL CARBON DIOXIDE 24.4 MMOL/L (24-32); eCRCL 64 ML/MIN; eGFR 64 ML/MIN
[2025-07-26 06:43] LABS: BANDS% (MANUAL) 2.0 % (0-10); EOSINOPHILS % (MANUAL) 1.0 % (0-6); LYMPHOCYTES % (MANUAL) 14.0 % (21-51); METAMYLEOCYTES% (MANUAL) 2.0 % (0-0); NUCLEATED RED BLOOD CELLS 1 /100WBC (0-0); PLATELET ESTIMATE NORMAL
[2025-07-26 06:44] LABS: MONOCYTES % (MANUAL) 35.0 % (2-12); NEUTROPHILS % (MANUAL) 46.0 % (42-75)
--- NOTE | 2025-07-26 11:05 | PROGRESS NOTE ---
Daily Progress Note Providers to CC ~ Antibiotic Timeout Antibiotic Ordered?: Yes Subjective Patient examined at bedside. No new complaints, not in acute distress. Patient denies chest pain, sob, palpitations, n/v/d. Patient reports resolving abdominal pain. CT abdomen/pelvis consistent with colon cancer with metastasis consistent with history. No hydronephrosis. Preliminary blood/urine culture negative. One episode of low-grade fever last night which resolved. Consulted ID Dr. Zimmerman with suspicion for progression of malignancy as a cause. Started Levaquin and Flagyl, will monitor. Uptrend of Cr with BUN/CR 7.4, discontinued vanco/Zosyn. Objective Vital Signs Date Time Temp Pulse Resp B/P (MAP) Pulse Ox O2 Delivery O2 Flow Rate FiO2 07/26/25 10:17 20 07/26/25 10:10 98.3 56 108/72 (84) 95 07/26/25 06:38 Room Air 07/26/25 04:00 0.0 21 Result Diagram: 07/26/25 04507/26/25 045 Physical Exam General: A&Ox 3, NAD HEENT: Normocephalic, PERRLA Neck: Supple, trachea midline, no JVD Chest: Clear to auscultation bilaterally Cardiovascular: RRR Abdomen: Pain with palpation in all 4 quadrants, more tenderness in medial upper abdomen; negative rebound tenderness Extremities: No cyanosis/clubbing/or edema Central Nervous System: CN II-XII intact, no focal deficits Musculoskeletal: No paraspinal muscle tenderness, no muscle spasm Skin: Warm and intact Problem\Assessment\Plan Roc Al is a 59-year-old male with a past medical history of hypertension, pulmonary embolism, colon cancer with metastasis to liver currently on chemotherapy, TIA who presented to the ED with chief complaint of fever x 3 days and abdominal pain unrelated to food intake x 2 weeks. Assessment & Plan UTI Colon cancer, on chemotherapy Liver metastasis Immunocompromised status Prerenal ROSS 2/2 dehydration/vasomotor nephropathy- not POA Atrial fibrillation w/ RVR- not POA -CT refused by pt; UA positive UTI, procal 1. -start IVF, Rocephin/Flagyl, follow blood/urine cx, US abdomen -07/22: CT abdomen/pelvis consistent with colon cancer with metastasis consistent with history. No hydronephrosis. Preliminary urine cx negative. -07/23: improving abdominal pain, preliminary blood cx negative; started vancomycin as an add-on therapy -07/24: Low-grade fever, continue abx; EKG overnight shows afib at 108 rate spontaneously controlled, serum lytes wnl, no hypoxia/hypotension but low-grade fever; start bbx, Eliquis, follow TTE, TSH/T4 -07/25: PAF, repeat EKG sinus with controlled rate -07/26: One episode of low-grade fever last night which resolved. Consulted ID Dr. Zimmerman with suspicion for progression of malignancy as a cause. Started Levaquin and Flagyl, will monitor. Uptrend of Cr with BUN/CR 7.4, discontinued vanco/Zosyn. Pulmonary embolism, 8 months ago Hypertension TIA Gout VTE/VTE prophylaxis: Heparin Code Status: Full Code Date of Service: Jul 26, 2025 Billing Provider: KERRY GARCIA Common Visit Codes: [id number] INP/OBS CARE(HIGH) KERRY GARCIA Jul 26, 2025 11:05
--- NOTE | 2025-07-26 11:45 | CONSULTATION ---
DATE OF CONSULTATION: 07/26/2025 DICTATING PHYSICIAN: Reynaldo Zimmerman MD REASON FOR CONSULTATION: I am seeing the patient at the request of CHANA Rigsg, for evaluation of intermittent fever following recent chemotherapy. HISTORY OF PRESENT ILLNESS: The patient is a 59-year-old male with stage IV colon cancer who has been receiving chemotherapy over the past several months. He is under the care of an oncologist in [place]. He and his live down in [place]. 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 He apparently was supposed to receive 10 cycles of chemotherapy. He got through 9 cycles, but stated that he did not want to go through the last cycle. I believe there has been some discussion about transitioning him to oral chemotherapy. He states that the more recent sessions have become more difficult. He now has peripheral neuropathy involving the feet and hands. He describes pain at his mouth when he starts to chew. He cannot recall any ulcers in his mouth. His breathing is stable with no cough or chest pain. He does have significant abdominal discomfort localized to the epigastrium and the right upper quadrant. He also describes dysuria and urgency. Initial culture was unrevealing. He has been receiving broad spectrum therapy with vancomycin, ceftriaxone, and metronidazole. He had a low-grade fever of 100.5 when he was here on the . He then had some temperatures in the 99 range and then had a temperature of 100.9 yesterday evening. White blood cell count has been normal and procalcitonin has been elevated without much change. He has not seen his oncologist lately as they apparently were on vacation. I do not have any baseline scans to compare with. PAST MEDICAL HISTORY: 1. Stage IV colon cancer with metastases involving the liver. 2. Venous thromboembolic disease. 3. Hypertension. PAST SURGICAL HISTORY: None. ALLERGIES: None. MEDICATIONS: 1. Vancomycin. 2. Ceftriaxone. 3. Metronidazole. 4. Carvedilol. 5. Apixaban. 6. Pantoprazole. 7. Colace. FAMILY HISTORY: Noncontributory. SOCIAL HISTORY: He is and lives down in [place]. He does not smoke or drink alcohol. PHYSICAL EXAMINATION: VITAL SIGNS: He is afebrile with stable vital signs on room air. GENERAL: He is a very pleasant middle-aged male, lying in bed, looking stable. HEENT: Sclerae anicteric. Mouth is clear with no mucositis. NECK: Supple. He does have a left-sided port in place. LUNGS: Clear to auscultation bilaterally. HEART: Regular rate and rhythm. ABDOMEN: Soft without significant distention. He has minimal tenderness at the epigastrium and right upper quadrant. EXTREMITIES: No edema. SKIN: No rash. LABORATORY DATA: His white blood cell count is 7900, hemoglobin 10.2, platelets 270,000, creatinine is 1.36. Procalcitonin has been ranging between 1.2 and 1.4. Urinalysis initially only showed 5-10 white blood cells and cultures showed mixed julio cesar. Blood cultures are negative. MRSA screen is negative. Chest x-ray is negative. Abdominal ultrasound shows evidence of numerous liver lesions. CT scan verifies this finding. There was some wall thickening of the cecum and there was a small amount of free fluid adjacent to the liver including the gallbladder fossa. No gallstones were seen. LFTs are normal. IMPRESSION: 1. Intermittent fever with right upper quadrant abdominal discomfort that seems to be consistent with his known liver metastases. He may have advancing disease and it is unclear if there is an infectious cause. 2. Stage IV colon cancer, recently treated with chemotherapy under the care of Oncology in [place]. He was diagnosed about 15 months ago. 3. Urinary symptoms including dysuria and frequency of unclear etiology. He also has some other sensory symptoms involving the mouth as well as in distal extremities. The urinary tract will need to be re-examined with urine testing. 4. History of venous thromboembolic disease on apixaban. RECOMMENDATIONS: I am going to stop vancomycin as he does not have a clear reason for this antibiotic. Ceftriaxone will be changed over to levofloxacin. He will continue with metronidazole for now. Repeat urinalysis and culture will be performed. I am going to hold off on additional workup for now and see how he responds to Levaquin. I would hold off on giving him an NSAID so we can see what his fever does in the next day or two. In addition, I would prefer to avoid an NSAID given his renal function and his anticoagulation. Celebrex may be a consideration. Hopefully, we can get him moving in the right direction a little bit better so that he can follow up with his oncologist in [place] soon. I thank you for allowing me to participate in his care. Reynaldo Zimmerman MD TID: [id number] RECEIPT: [id number] RACHNA/ALMITA
[2025-07-26] MEDS: lactose-reduced food (Ensure Enlive) - 237ml bottle PO SCH (13:00)
[2025-07-26] MEDS: levoFLOXACIN-Levaquin 500mg/D5 100 ML IV SCH (13:38)
[2025-07-26 17:18] LABS: LEUKOCYTE ESTERASE ,URINE NEGATIVE (Neg); OCCULT BLOOD,URINE NEGATIVE (Neg)
[2025-07-26 17:29] LABS: UA COLLECTION TYPE NON-SPECIFIED
[2025-07-26 17:30] LABS: NITRITES, URINE NEGATIVE (Neg)
[2025-07-26 17:31] LABS: MUCUS STRANDS FEW /LPF (Neg); SQUAMOUS EPITHELIAL CELL,UR FEW /LPF (FEW)
[2025-07-26 17:32] LABS: FINE GRANULAR CAST 0-3 /LPF (NEGATIVE)
[2025-07-26] MEDS: metoclopramide 5 mg/ml inj IV PRN (18:08)
[2025-07-26] MEDS: pantoprazole 40mg Tablet.DR PO SCH (21:37)
[2025-07-26] MEDS: lactobacillus rhamnosus 10,000 MMU CELLS/CAPSULE PO SCH (21:38)
[2025-07-27] VITALS (7 sets, daily range): BP systolic 124–144; BP diastolic 67–83; PULSE 61–80; RESP 13–17; TEMP 96.5–98.1; O2SAT 94–99
[2025-07-27] MEDS: VANCOMYCIN LEVEL IV ONE (01:45)
[2025-07-27 05:38] LABS: MEAN PLATELET VOLUME 8.0 FL (7.4-10.4); RED CELL DISTRIBUTION WIDTH 18.5 % (11.5-14.5)
[2025-07-27 06:10] LABS: CREATININE 1.01 MG/DL (0.60-1.10); TOTAL CARBON DIOXIDE 26.7 MMOL/L (24-32); eCRCL 87 ML/MIN; eGFR > 90 ML/MIN
[2025-07-27 09:05] LABS: BANDS% (MANUAL) 3.0 % (0-10); METAMYLEOCYTES% (MANUAL) 3.0 % (0-0); MONOCYTES % (MANUAL) 24.0 % (2-12)
[2025-07-27 09:06] LABS: LYMPHOCYTES % (MANUAL) 8.0 % (21-51); NEUTROPHILS % (MANUAL) 62.0 % (42-75)
[2025-07-27 09:07] LABS: PLATELET ESTIMATE NORMAL
--- NOTE | 2025-07-27 18:48 | PROGRESS NOTE ---
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 Objective Vital Signs Date Time Temp Pulse Resp B/P (MAP) Pulse Ox O2 Delivery O2 Flow Rate FiO2 07/27/25 10:00 98.0 67 16 144/77 (99) 98 Room Air 07/27/25 08:00 0.0 21 Result Diagram: 07/27/2541707/27/258 General-patient not in any acute distress, alert awake oriented, chronically ill-appearing HEENT-atraumatic normocephalic, neck supple without elevated JVD, no thyromegaly or carotid bruit. No lymphadenopathy bilaterally. Eyes-no icterus or pallor seen in eyes Chest-clear to auscultation bilaterally, breathing nonlabored no tachypnea, no wheezing, no crepitation, no crackles. Heart-S1-S2 normal, regular heart rate no murmur Abdomen bowel sounds positive on auscultation, soft nondistended nontender no guarding, no rigidity Skin no active skin rash Neurology-grossly intact, nonfocal alert awake oriented Extremity- no pedal edema able to move all 4 extremities Psychiatry - patient is not confused or agitated cooperated during physical examination Problem\Assessment\Plan Roc Al is a 59-year-old male with a past medical history of hypertension, pulmonary embolism, colon cancer with metastasis to liver currently on chemotherapy, TIA who presented to the ED with chief complaint of fever x 3 days and abdominal pain unrelated to food intake x 2 weeks. Assessment & Plan UTI Colon cancer, on chemotherapy Liver metastasis Immunocompromised status Prerenal RSOS 2/2 dehydration/vasomotor nephropathy- not POA Atrial fibrillation w/ RVR- not POA -CT refused by pt; UA positive UTI, procal 1. -start IVF, Rocephin/Flagyl, follow blood/urine cx, US abdomen -07/22: CT abdomen/pelvis consistent with colon cancer with metastasis consistent with history. No hydronephrosis. Preliminary urine cx negative. -07/23: improving abdominal pain, preliminary blood cx negative; started vancomycin as an add-on therapy -07/24: Low-grade fever, continue abx; EKG overnight shows afib at 108 rate spontaneously controlled, serum lytes wnl, no hypoxia/hypotension but low-grade fever; start bbx, Eliquis, follow TTE, TSH/T4 -07/25: PAF, repeat EKG sinus with controlled rate -07/26: One episode of low-grade fever last night which resolved. Consulted ID Dr. Zimmerman with suspicion for progression of malignancy as a cause. Started Levaquin and Flagyl, will monitor. Uptrend of Cr with BUN/CR 7.4, discontinued vanco/Zosyn. 07/27/25- Dr. Zimmerman following the patient recommended to follow urine analysis and culture. We will continue on Levaquin and Flagyl for now Pulmonary embolism, 8 months ago Hypertension TIA Gout VTE/VTE prophylaxis: Heparin Code Status: Full Code Patient's current condition is guarded I will continue to follow patient in a.m. Date of Service: Jul 27, 2025 Billing Provider: LY SNYDER MD Common Visit Codes: [id number] INP/OBS CARE(HIGH) LY SNYDER MD Jul 27, 2025 18:48
[2025-07-28 03:53] VITALS: O2SAT 95
[2025-07-28 04:15] LABS: MEAN PLATELET VOLUME 7.9 FL (7.4-10.4)
[2025-07-28 04:17] LABS: RED CELL DISTRIBUTION WIDTH 18.1 % (11.5-14.5)
[2025-07-28 04:48] LABS: CREATININE 0.86 MG/DL (0.60-1.10); TOTAL CARBON DIOXIDE 27.5 MMOL/L (24-32); eCRCL 102 ML/MIN; eGFR > 90 ML/MIN
[2025-07-28 04:49] LABS: BANDS% (MANUAL) 11 % (0-10); EOSINOPHILS % (MANUAL) 2 % (0-6); LYMPHOCYTES % (MANUAL) 15 % (21-51); METAMYLEOCYTES% (MANUAL) 4 % (0-0); MONOCYTES % (MANUAL) 13 % (2-12); MYELOCYTES % (MANUAL) 2 % (0-0); NEUTROPHILS % (MANUAL) 53 % (42-75); NUCLEATED RED BLOOD CELLS 1 /100WBC (0-0); PLATELET ESTIMATE NORMAL
[2025-07-28 06:00] VITALS: BP 159/81; PULSE 71; RESP 16; TEMP 98; O2SAT 96
[2025-07-28 07:58] VITALS: RESP 16; O2SAT 96
[2025-07-28 10:00] VITALS: BP 168/94; PULSE 74; RESP 18; TEMP 98.1; O2SAT 94
[2025-07-28] MEDS ORDERED: APIX5TAB3 PO (13:02)
[2025-07-28] MEDS ORDERED: COR3.125T PO (13:02)
[2025-07-28] MEDS ORDERED: LEVO750T68 PO (13:02)
--- NOTE | 2025-07-28 13:35 | PROGRESS NOTE ---
Progress Note Dictate Providers to CC ~ Subjective Subjective: He states that he is feeling much better. Dysuria and urgency have resolved. He would like to go home. Objective Objective: GENERAL: He is a very pleasant middle-aged male who is looking much better NECK: He does have a left-sided port in place. LUNGS: Clear to auscultation bilaterally. HEART: Regular rate and rhythm. ABDOMEN: Soft without significant distention. He has minimal tenderness at epigastrium and right upper quadrant. EXTREMITIES: No edema. Lab Results: 07/28/25 0344 07/28/25 0344 Problem\Assessment\Plan Additional Plan 1. Intermittent fever with right upper quadrant abdominal discomfort that seems to be consistent with his known liver metastases. He may have advancing disease. 2. Stage IV colon cancer, recently treated with chemotherapy under the care of Oncology in [place]. He was diagnosed about 15 months ago. 3. Urinary symptoms including dysuria and frequency of unclear etiology. He does demonstrate pyuria. ?Nongonococcal urethritis 4. History of venous thromboembolic disease on apixaban. Continue levofloxacin Plan for one more week of therapy DC metronidazole DC home REGGIE WHITE MD Jul 28, 2025 13:35
--- NOTE | 2025-07-28 18:42 | DISCHARGE SUMMARY ---
Discharge Summary Providers to CC ~ Discharge Summary Admission Diagnosis: fever, sepsis, immunocompromised Hospital Course DATE OF ADMISSION: 07/21/2025 DATE OF DISCHARGE: 07/28/2025 Discharge Diagnosis\\Comment: UTI, colon cancer with liver metastasis, ROSS secondary to dehydration/possible vasomotor nephropathy not present on admission, AFib RVR, history of TIA/pulmonary embolism, hypertension, gout Operations\\Procedures: None Consultants: Dr. Reynaldo ferrara infectious disease physician Complications: None Condition on DC: Stable New Medications: Levofloxacin (Levofloxacin) 750 Mg Tablet 750 MG PO DAILY, #7 TAB Apixaban (Eliquis) 5 Mg Tablet 5 MG PO BID, #60 TAB Carvedilol (Carvedilol) 3.125 Mg Tablet 3.125 MG PO BID, #60 TAB Discharge Summary: The patient was admitted by TEST DESIGNER Tl Mendez with the following HPI:"Roc Al is a 59-year-old male with a past medical history of hypertension, pulmonary embolism, colon cancer with metastasis to liver currently on chemotherapy, TIA who presented to the ED with chief complaint of fever x 3 days and abdominal pain unrelated to food intake x 2 weeks. Patient has had nine rounds of chemo. Patient denies chest pain, palpitations, shortness of breath, n/v/d, dysuria, melena, hematochezia, hematemesis. Initial diagnostic findings are notable for fever and elevated procal. Patient is to be admitted for further workups and treatment." The patient was febrile intermittently and was evaluated by Reynaldo ferrara infectious disease physician who assessed that the patient has intermittent fevers were likely secondary to his known liver metastasis however the patient has had dysuria and frequency of unknown etiology and was diagnosed with a possible non gonococcal urethritis Dr. ferrara recommended that the patient be discharged on a one-week course of p.o. Levaquin. The patient went into AFib RVR and was treated with carvedilol and was started on apixaban for DVT and stroke prophylaxis. The patient has developed acute kidney injury which was possibly secondary to dehydration/possible vasomotor nephropathy this was not present on admission. Gen. No acute distress alert and oriented 4 Lungs clear to ascultation bilaterally, no wheezes rales or rhonchi appreciated Heart normal sinus rhythm no murmurs rubs or clicks noted Abdomen soft nontender bowel sounds are normoactive Lower extremities no clubbing cyanosis, nor edema appreciated bilaterally The patient felt ready to be discharged and was medically cleared to be discharged on 07/28/2025 The patient was seen and evaluated on day of discharge. Time spent on discharge 35 minutes *Problems/Diagnosis: (1) Atrial flutter Total Time Spent on D/C: > 30 Minutes Date of Service: Jul 28, 2025 Billing Provider: TRUPTI RODRIGUEZ DO Common Visit Codes: [id number] DISCH DAY >30min TRUPTI RODRIGUEZ DO Jul 28, 2025 18:42
== END 2025-07-28 14:37 | disposition home or self-care (01) | DRG 463 ==
LOC: ER 09:38 → ED HOLD 13:51 → SUR 3N 16:50
PROVIDERS: ADMIT Nurse Practitioner Family; ATTEND Nurse Practitioner Family
DX: N39.0 Urinary tract infection, site not specified (principal); N17.0 Acute kidney failure with tubular necrosis; D84.9 Immunodeficiency, unspecified; C18.9 Malignant neoplasm of colon, unspecified; C78.7 Secondary malignant neoplasm of liver and intrahepatic bile duct; I48.92 Unspecified atrial flutter; G62.9 Polyneuropathy, unspecified; I10 Essential (primary) hypertension; G45.9 Transient cerebral ischemic attack, unspecified; I48.91 Unspecified atrial fibrillation; Z86.711 Personal history of pulmonary embolism; Z86.718 Personal history of other venous thrombosis and embolism; Z92.21 Personal history of antineoplastic chemotherapy; Z86.73 Personal history of transient ischemic attack (TIA), and cerebral infarction without residual deficits; Z79.01 Long term (current) use of anticoagulants
CPT/HCPCS: 36415; 71045; 74177; 76700; 80053; 80202; 81001; 82948; 83605; 83690; 83735; 83880; 84145; 84439; 84443; 84484; 85007; 85025; 85651; 86140; 87040; 87081; 87088; 93005; 93306; 97116; 97161; 97530; 99285; A4615; A6258; G0378; J0696; J1644; J1956; J2405; J2470; J2765; J3360; J3373; J3374; J3375; J3490; J7030; Q9967